=== PATIENT | male | born 1975 | race Caucasian/White ===

== ENCOUNTER 2017-02-01 10:42 | Inpatient (IN) | payer SELFPAY ==
[2017-02-01] MEDS ORDERED: ADENOSINE 6 MG/2 ML VIAL ONE (10:54)
--- NOTE | 2017-02-01 10:59 | CPEKG ---
Heart Rate: 215 RR Interval: 279 QRSD Interval: 108 QT Interval: 244 QTC Interval: 462 P [place]: 0 QRS [place]min[place]: -48 T Wave [place]: 108 EKG Severity - ABNORMAL ECG - EKG Impression: SUPRAVENTRICULAR TACHYCARDIA EKG Impression: VENTRICULAR PREMATURE COMPLEX EKG Impression: ABERRANT COMPLEX EKG Impression: INCOMPLETE RIGHT BUNDLE BRANCH BLOCK EKG Impression: INFERIOR INFARCT, POSSIBLY ACUTE EKG Impression: LATERAL LEADS ARE ALSO INVOLVED Electronically Signed By: Missael Garcia 01-Feb-2017 14:35:01
[2017-02-01] MEDS ORDERED: NS 100 ML BAG IV ONE (11:01)
[2017-02-01] MEDS ORDERED: AMIODARONE HCL 150 MG/3 ML VIAL ONE (11:01)
--- NOTE | 2017-02-01 11:03 | EDPHY ---
H & P Stated Complaint: fast hr/nausea Time Seen by Provider: 02/01/17 11:02 - Personal History Current Tetanus/Diphtheria Vaccine: Yes - Medical/Surgical History Hx Asthma: No Hx Chronic Respiratory Disease: No Hx Diabetes: No Hx Cardiac Disease: No Hx Renal Disease: No Hx Cirrhosis: No Hx Alcoholism: No Hx HIV/AIDS: No Hx Splenectomy or Spleen Trauma: No Other PMH: r knee surg - Social History Smoking Status: Never smoked Constitutional: Initial Vital Signs Temperature (C) 36.4 C 02/01/17 10:47 Heart Rate 220 H 02/01/17 10:47 Respiratory Rate 22 H 02/01/17 10:47 Blood Pressure 108/83 H 02/01/17 10:47 O2 Sat (%) 98 02/01/17 10:47 O2 Delivery Mode [Post Non-Rebreather Mask Procedure 1st] O2 Delivery Mode [Procedural Non-Rebreather Mask 3rd] O2 Delivery Mode [Procedural Non-Rebreather Mask 2nd] O2 Delivery Mode [Procedural Non-Rebreather Mask 1st] O2 Delivery Mode [.Immediate Non-Rebreather Mask Pre-Procedure] O2 Delivery Mode Non-Rebreather Mask O2 (L/minute) [Post Procedure 15 1st] O2 (L/minute) [Procedural 3rd] 15 O2 (L/minute) [Procedural 2nd] 15 O2 (L/minute) [Procedural 1st] 15 O2 (L/minute) [.Immediate Pre- 15 Procedure] O2 (L/minute) 15 Allergies/Adverse Reactions: No Known Allergies Allergy (Unverified 02/01/17 10:45) Home Medications: Medication Instructions Recorded Aspirin 325 mg (*) 02/01/17 Medical Decision Making ED Course/Re-evaluation: CHIEF COMPLAINT: Rapid heart rate HISTORY OF PRESENT ILLNESS: The patient is a 41 y/o male arriving via private vehicle at the referral of urgent care complaining of rapid heart rate onset around 21:00 last night, about 14 hours ago. He has no prior history of SVT or other cardiac disease. He denies associated chest pain or shortness of breath, but this morning developed weakness, nausea, and fatigue. He has never experienced these symptoms before. He ate part of a banana and some almonds this morning, but later vomited it up. He denies any illicit drugs. His father had an NC at age 58. REVIEW OF SYSTEMS: A 10 point review of systems was performed and is negative with the exception of the elements mentioned in the history of present illness. PHYSICAL EXAM: HR 220, BP unobtainable, O2 Sat, RR. Temp noted General Appearance: Alert, well hydrated, appropriate, and non-toxic appearing. Head: Atraumatic without scalp tenderness or obvious injury Eyes: Pupils equal, round, reactive to light and accommodation, EOMI, no trauma , no injection. Throat: There is no erythema or exudates, no lesions, normal tonsils, mucus membranes moist. Neck: Supple, nontender, no lymphadenopathy. Respiratory: No retractions, no distress, no wheezes, and no accessory muscle use. Lungs are clear to auscultation bilaterally. Cardiovascular: Tachycardic rate and rhythm, no murmurs, rubs, or gallops. Good capillary refill all extremities. Gastrointestinal: Abdomen is soft, nontender, non-distended, no masses, no rebound, no guarding, no peritoneal signs. Musculoskeletal: Normal active ROM of all extremities, atraumatic. Neurological: Alert, appropriate, and interactive. Nonfocal neuro exam. Skin: No rashes, good turgor, no nodules on palpation. Past medical history: Denies Past surgical history: Denies Family history: Father had NC at age 58. 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 Narrow complex tachycardiac rate 215 with rate-related ischemia. See hard copy and/or "tracemaster" electronic copy for interpretation. 1119: Procedure: Conscious sedation. Indication: Cardioversion The patient is an appropriate candidate to tolerate procedural sedation. The patient's vitals signs and mental status are appropriate. NPO status (vomited small breakfast several hours ago). The risks, benefits and alternatives of the sedation were discussed with the patient. The patient is ASA classification 1. The patient's Mallampati airway score was 1 and the patient did meet the 3-3 -2 airway measurements. A time out was completed. The patient was sedated with 100mg IV Propofol. The patient was monitored with continuous pulse oximetry , telemetry monitor and end tidal CO2. Patient required jaw thrust and BVM; SpO2 remained at 100%. I performed both the sedation and the procedure. The total time I spent at the bedside during the procedural sedation was 15 minutes. The patient was examined after the procedural sedation and has returned to their pre -sedation baseline with unchanged vital signs and a normal examination. Procedure: Electrical Cardioversion x3 Indication: Narrow complex tachycardia not responsive to medication Risks, benefits, alternatives discussed with the patient and consent obtained. The patient was on a continuous child monitor, with airway equipment at the bedside. The patient was on continuous pulse oximetry and passive CO2 monitor. The cardioversion was performed with 150 joules, synchronized. The cardioversion was unsuccessful. We shocked again at 300 joules without improvement. A third shock was administered at 360 joules with no improvement in rhythm. Patient required jaw thrust and BVM; SpO2 remained at 100%. The procedure was performed by myself. 1144: Procedure: Conscious sedation. Indication: Cardioversion The patient is an appropriate candidate to tolerate procedural sedation. The patient's vitals signs and mental status are appropriate. NPO status (vomited small breakfast several hours ago). The risks, benefits and alternatives of the sedation were discussed with the patient. The patient is ASA classification 1. The patient's Mallampati airway score was 1 and the patient did meet the 3-3 -2 airway measurements. A time out was completed. The patient was sedated with 100mg IV Propofol. The patient was monitored with continuous pulse oximetry , telemetry monitor and end tidal CO2. Patient required jaw thrust and BVM; SpO2 remained at 100%. I performed both the sedation and the procedure. The total time I spent at the bedside during the procedural sedation was 15 minutes. The patient was examined after the procedural sedation and has returned to their pre -sedation baseline with unchanged vital signs and a normal examination. 1147: The 12 lead EKG was interpreted by myself. Sinus rhythm rate 87 with inferior ischemia. See hard copy and/or "tracemaster" electronic copy for interpretation. Critical care time spent by me, Dr. Garcia, exclusively with this patient was 60 minutes, exclusive of PA time and exclusive of procedures. The organ system at risk was cardiovascular and I gave IVF, Amiodarone, Adenosine, Procainamide, procedural sedation twice, cardioversion three times, and emergently transferred the patient to the confectionery laboratory manager to prevent worsening of the patients condition. DIFFERENTIAL DIAGNOSIS: The differential diagnosis for the patient's narrow complex tachycardia included but was not limited to various causes of sinus tachycardia such as dehydration and medicines, SVT, atrial flutter, atrial fibrillation, pulmonary causes. MEDICAL DECISION MAKING: This is a normally healthy 41 y/o male presenting with a 14-hour history of rapid heart rate with weakness and nausea onset this morning. He has no known cardiac history. He is alert, oriented, and walking upon his arrival in the ED. He denies chest pain. No signs of respiratory distress. EKG shows narrow complex tachycardia rate around 220. We have been unable to auscultate a BP, though patient remains conscious and talking. IV established. Labs drawn including CBC, CHEM, TSH, BNP, d-dimer, troponin. 200mL IV NS administered. 1109: 12mg IV Adenosine administered without any reduction in patient's heart rate. 1110: Consulted with Dr. Gustafson, hospitalist, at bedside. He thinks the EKG shows ventricular tachycardia. Job Checker paged. 1115: 150mg IV Amiodarone administered. 1119: Conscious sedation initiated for cardioversion. 1122: One shock at 150 joules and second shock at 300 joules did not improve rhythm. 1123: Dr. Daniels, sugar presser, at bedside. 1125: Third shock at 360 joules performed without conversion. Dr. 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 Stat echocardiogram ordered. 1139: Dr. Rhodes, electrocardiologist, at bedside. 1140: Dr. Daniels reports the echo shows his inferior wall has poor motion, which could indicate NC. He is plans to take patient to the confectionery laboratory manager. 1141: 1gm IV procainamide administered. Drip over 20 minutes. 1143: Dr. Rhodes has requested repeat sedation to reattempt cardioversion. Rate is 185. He reads the initial EKG as ventricular tachycardia secondary to recent right coronary infarct in conjunction with inferior injury on echocardiogram. 1147: HR is 88 after procainamide administration. Repeat 12-lead shows sinus rhythm rate 87 with inferior ischemia. BP is 96/62. IV fluid administered in consultation with cardiology. He is heading to confectionery laboratory manager emergently with Dr. Daniels. Troponin is elevated at 1.340, D-dimer elevated at 1.43, BNP elevated at 5310. - Data Points Laboratory Results: Laboratory Results 02/01/17 11:03 02/01/17 11:03 05/09/0802/01/17 02/01/17 11:03 11:03 11:03 WBC RBC Hgb Hct MCV MCH MCHC RDW Plt Count D-Dimer 1.43 ug/mLFEU H ug/mLFEU (0.00-0.50) Sodium 140 mEq/L mEq/L (134-144) Potassium 4.8 mEq/L mEq/L (3.5-5.2) Chloride 107 mEq/L mEq/L (97-110) Carbon Dioxide 19 mEq/l L mEq/l (22-31) Anion Gap 14 mEq/L mEq/L (8-16) BUN 27 mg/dL H mg/dL (7-23) Creatinine 1.0 mg/dL mg/dL (0.7-1.3) Estimated GFR > 60 Glucose 155 mg/dL H mg/dL (70-100) Calcium 9.8 mg/dL mg/dL (8.5-10.4) Total Bilirubin 0.8 mg/dL mg/dL (0.1-1.4) AST 372 IU/L H IU/L (17-59) ALT 397 IU/L H IU/L (21-72) Alkaline Phosphatase 117 IU/L IU/L (38-126) Troponin I Cancelled 1.340 ng/mL H ng/mL (0-0.034) NT-Pro-B Natriuret Pep Cancelled 5310 pg/mL H pg/mL (0-125) Total Protein 7.3 g/dL g/dL (6.3-8.2) Albumin 4.2 g/dL g/dL (3.5-5.0) TSH 1.550 uIU/mL uIU/mL Cancelled (0.465-4.680) 02/01/17 11:03 WBC 9.29 10^3/uL 10^3/uL (3.80-9.50) RBC 4.78 10^6/uL 10^6/uL (4.40-6.38) Hgb 14.9 g/dL g/dL (13.7-17.5) Hct 42.8 % % (40.0-51.0) MCV 89.5 fL fL (81.5-99.8) MCH 31.2 pg pg (27.9-34.1) MCHC 34.8 g/dL g/dL (32.4-36.7) RDW 12.8 % % (11.5-15.2) Plt Count 302 10^3/uL 10^3/uL (150-400) D-Dimer Sodium Potassium Chloride Carbon Dioxide Anion Gap BUN Creatinine Estimated GFR Glucose Calcium Total Bilirubin AST ALT Alkaline Phosphatase Troponin I NT-Pro-B Natriuret Pep Total Protein Albumin TSH Medications Given: Discontinued Medications Adenosine (Adenosine) 12 mg IVP EDNOW ONE Stop: 02/01/17 11:07 Last Admin: 02/01/17 11:10 Dose: 12 mg Amiodarone HCl (Amiodarone Hcl) 150 mg IV EDNOW ONE Stop: 02/01/17 11:18 Last Admin: 02/01/17 11:17 Dose: 150 mg Sodium Chloride (Ns) 1,000 mls @ 0 mls/hr IV ONCE ONE PRN Reason: Wide Open Stop: 02/01/17 11:07 Last Admin: 02/01/17 11:10 Dose: 1,000 mls Procainamide HCl 1,000 mg/ (Dextrose) 60 mls @ 120 mls/hr IV ONCE ONE Stop: 02/01/17 11:55 Last Admin: 02/01/17 11:41 Dose: 60 mls Procainamide HCl 1,000 mg/ (Dextrose) 60 mls @ 120 mls/hr IV ONCE ONE Stop: 02/01/17 11:56 Last Admin: 02/01/17 11:42 Dose: Not Given Propofol (Diprivan) 100 mg IVP EDNOW ONE Stop: 02/01/17 11:46 Last Admin: 02/01/17 11:45 Dose: 100 mg Propofol (Diprivan) 100 mg IVP EDNOW ONE Stop: 02/01/17 11:20 Last Admin: 02/01/17 11:19 Dose: 100 mg Departure - Departure Disposition: [facility] Clinical Impression: Ventricular tachycardia, Inferior myocardial infarction, Elevated d-dimer, Elevated troponin Acute congestive heart failure Qualifiers: Congestive heart failure type: unspecified congestive heart failure type Qualified Code(s): I50.9 - Heart failure, unspecified Condition: Critical Report Scribed for: Missael Garcia Report Scribed by: Janine Duarte Date of Report: 02/01/17 Time of Report: 11:03
[2017-02-01] MEDS ORDERED: ADENOSINE 6 MG/2 ML VIAL IVP ONE (11:06)
[2017-02-01] MEDS ORDERED: NS 1,000 ML IV ONE ×2 (11:06→11:45)
[2017-02-01] MEDS ORDERED: PROPOFOL 200 MG/20 ML VIAL ONE (11:15)
[2017-02-01 11:17] LABS: HEMATOCRIT 42.8 % (40.0-51.0); HEMOGLOBIN 14.9 g/dL (13.7-17.5); MEAN CELL HEMOGLOBIN 31.2 pg (27.9-34.1); MEAN CELL HEMOGLOBIN CONCENTR. 34.8 g/dL (32.4-36.7); MEAN CELL VOLUME 89.5 fL (81.5-99.8); RED BLOOD CELL COUNT 4.78 10^6/uL (4.40-6.38); RED CELL DISTRIBUTION WIDTH 12.8 % (11.5-15.2)
[2017-02-01] MEDS ORDERED: AMIODARONE HCL 150 MG/3 ML VIAL IV ONE (11:17)
[2017-02-01] MEDS ORDERED: PROPRANOLOL HCL 1 MG/ML VIAL IV ONE (11:19)
[2017-02-01] MEDS ORDERED: PROPOFOL 200 MG/20 ML VIAL IVP ONE ×2 (11:19→11:45)
[2017-02-01] MEDS ORDERED: PROCAINAMIDE HCL 1,000 MG in D5W 50 ML IV ONE ×2 (11:26→11:27)
[2017-02-01 11:31] LABS: ALANINE AMINOTRANSFERASE 397 IU/L (21-72); ALBUMIN 4.2 g/dL (3.5-5.0); ALKALINE PHOSPHATASE 117 IU/L (38-126); ANION GAP 14 mEq/L (8-16); ASPARTATE AMINOTRANSFERASE 372 IU/L (17-59); BILIRUBIN,TOTAL 0.8 mg/dL (0.1-1.4); CALCIUM 9.8 mg/dL (8.5-10.4); CARBON DIOXIDE 19 mEq/l (22-31); CHLORIDE 107 mEq/L (97-110); GLOMERULAR FILTRATION RATE > 60; GLUCOSE 155 mg/dL (70-100); POTASSIUM 4.8 mEq/L (3.5-5.2); SODIUM 140 mEq/L (134-144); TOTAL PROTEIN 7.3 g/dL (6.3-8.2)
[2017-02-01] MEDS: PROPRANOLOL HCL 1 MG/ML VIAL IV ONE ×2 (11:45→20:27)
[2017-02-01] MEDS ORDERED: KETAMINE 100 MG/10 ML SYR IVP ONE (11:47)
[2017-02-01] MEDS ORDERED: IOPAMIDOL (ISOVUE-370) 150 ML BTL IV ONE ×2 (11:57→12:19)
[2017-02-01] MEDS ORDERED: MIDAZOLAM 2 MG/2 ML VIAL ONE ×2 (11:57)
[2017-02-01] MEDS ORDERED: LIDOCAINE 1% 30 ML SDV ONE (11:57)
[2017-02-01] MEDS ORDERED: fentaNYL 100 MCG/2 ML INJ ONE ×2 (11:57→13:07)
--- NOTE | 2017-02-01 11:59 | CPEKG ---
Heart Rate: 87 RR Interval: 690 P-R Interval: 172 QRSD Interval: 68 QT Interval: 360 QTC Interval: 433 P [place]: 19 QRS [place]: 119 T Wave [place]: -34 EKG Severity - ABNORMAL ECG - EKG Impression: SINUS RHYTHM EKG Impression: RIGHT AXIS DEVIATION EKG Impression: LOW VOLTAGE IN FRONTAL LEADS EKG Impression: ABNORMAL T, CONSIDER ISCHEMIA, INFERIOR LEADS Electronically Signed By: Missael Garcia 01-Feb-2017 14:35:01
[2017-02-01] MEDS ORDERED: BIVALIRUDIN 250 MG/5 ML VIAL IV ONE (12:18)
[2017-02-01] MEDS ORDERED: NITROGLYCERIN 1,500 MCG/15 ML VIAL MISC ONE (12:18)
--- NOTE | 2017-02-01 12:54 | PDDXCAT ---
Diagnostic Cath Note - . Date: 02/01/17 Intervention: 1. PTCA and drug-eluting stent implantation in the left circumflex 2. Placement of Intraaortic balloon pump (IABP) *Procedure 1. selective coronary angiography 2. left heart catheterization 3. left ventriculogram 4. PTCA and drug-eluting stent implantation in the mid left circumflex 5. placement of intra-aortic balloon pump Indication: Acute coronary syndrome, monomorphic ventricular tachycardia. The patient was brought to the cath lab radiological technologist urgently and was sedated and unable to sign consents before the start of the procedure. Access: Right femoral artery *Materials Left Heart Cath size: 6F Left Heart Cath materials: JR4, JL3.5, AL1, Arron Right, pigtail, 2.5 x 15 mm Emerge Balloon, 2.5 x 20 mm Synergy drug eluting stent *Findings-Selective Coronary Angiography LM: The left main is ~5 mm in size and bifurcates into an LAD and circumflex system. There is no significant LM disease. LAD: The proximal LAD is ~3 mm in size and has maximal luminal stenosis of 20% at the level of the first diagonal takeoff. The distal 1/3 of the vessel is diffusely diseased. There is no flow limiting obstruction with TERESA III flow. LCX: There is a 100% mid left circumflex lesion with TERESA 0 flow. There is a 100% occlusion of the circumflex obtuse marginal with TERESA 0 flow. RCA: The right coronary artery was successfully cannulated with a Arron Right. 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 The vessel is dominant and ~3.5 mm in size. There is a 40-50% plaque area stenosis in the mid RCA with TERESA II flow to the distal vessel. *Findings-Left Heart Catheterization LVEDP: 32 mmHg AO: 96/65/73 mmHg LVEF: 20% LVG: There is severe global wall hypokinesis with reduced ejection fraction. 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 There is 3+ to 4+ MR on pressurized injection. *Intervention A CLS 3.5 Con[place] was used for guide catheter support. A 0.014" Intuition Guide Wire was inserted in the mid left circumflex lesion under direct fluoroscopic and angiographic guidance. Angiomax bolus was given and activated clotting time was documented to be >250 seconds. A 2.5 x 15 mm Emerge Balloon used to predilate the 100% mid left circumflex lesion with TERESA 0 flow and inflated under a maximum of 10 allen of pressure. Status post stent implantation, the balloon was exchanged for a 2.5 x 20 mm Synergy drug eluting stent which was successfully deployed under 14 allen of pressure. The 2.5 x 20 mm Synergy stent was removed and exchanged for a 2 x 20 mm NC Emerge balloon. The balloon was used to post-dilate the stent with multiple inflations under a maximum of 16 allen of pressure. There was 0% residual stenosis with TERESA I flow status post intervention. We proceeded with intraaortic balloon pump placement with 1:1 augmentation. *Summary Complications: None Estimated blood loss: <100ml Closure method: Manual pressure Assessment/Conclusion: 1. Subacute subendocardial myocardial infarction with 100% occlusion of the mid left circumflex with TERESA 0 flow. This was reperfused with a 2.5 x 20 mm Synergy drug eluting stent and multiple balloon inflations. Status post stent implantation there was 0% residual stenosis and TERESA II flow to the distal vessel. Intraaortic balloon pump with 1:1 assistance and augmentation at 120 was placed following stent implantation. The patient returned to the ICU in stable condition. 2. There is severe and global wall hypokinesis with severely reduced ejection fraction at 20%. This may be secondary to tachycardia induced cardiomyopathy versus some preexisting cardiomyopathy with super imposed acute coronary syndrome. 3. Ventricular tachycardia vs. atrial tachycardia with accessory pathway. The patient should have AICD implant before discharge given that the patient presented with sustained monomorphic VT which implies a ventricular scar. We will continue to monitor. 4. Severe 4+ mitral regurgitation on pressurized injection of contrast. This may be secondary to papillary muscle dysfunction. We will follow up with echo in 48 hours to track ejection fraction and severity of MR. Patient Problems: Problems Problem Status Onset Inferior myocardial infarction Acute Ventricular tachycardia Acute
[2017-02-01] MEDS ORDERED: ONDANSETRON 4 MG/2 ML VIAL ONE (13:16)
[2017-02-01] MEDS ORDERED: ASPIRIN 325 MG TAB ONE (13:22)
[2017-02-01] MEDS ORDERED: PRASUGREL HCL 10 MG TAB ONE (13:22)
[2017-02-01] MEDS ORDERED: FUROSEMIDE 40 MG/4 ML VIAL ONE (13:46)
--- NOTE | 2017-02-01 13:50 | ECHO ---
[id number] + + [address] : : [place] [address] : : [phone] + Adult Echocardiographic Report + ---+ :Name: СВЕТЛАНА MICHAUD MStudy Date: 02/01/2017 12:01 PM : : Hospital Admission Number: [id number] Location: ER: :: 1975 Gender: Male : :Age: 41 yrs Race: WH : :Reason For Study: Tachycardia : + ---+ Left Ventricle The rhythm is extreme tachycardia Depressed LVEF at 20% LV inferolateral/inferior mcnally are severely hypokinetic One color Doppler view of the MR shows at least moderate regurgitation. Conclusion Limited 2-D echo. Final Reading Physician: Dr Nicolasa Cochran electronically signed on 02/01/2017 01:48 PM Ordering Physician: Sergo Daniels Performed By: Isabelle Cui RDCS
[2017-02-01] MEDS ORDERED: NITROGLYCERIN 0.4 MG BTL SL PRN (14:37)
[2017-02-01] MEDS ORDERED: ONDANSETRON DISINTEGRATING 4 MG TAB PO PRN (14:37)
[2017-02-01] MEDS ORDERED: ONDANSETRON 4 MG/2 ML VIAL IVP PRN (14:37)
[2017-02-01] MEDS ORDERED: ACETAMINOPHEN 325 MG TAB PO PRN (14:37)
[2017-02-01] MEDS ORDERED: ATROPINE SULFATE 1 MG/10 ML SYR IVP PRN (14:37)
--- NOTE | 2017-02-01 14:49 | GCON ---
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 REASON FOR ADMISSION: Tachycardia, coronary artery disease, intra-aortic balloon pump. HISTORY OF PRESENT ILLNESS: The patient is a 41-year-old white male without past medical history. He presented to the emergency room markedly tachycardic. He underwent cardioversion x3 without impr ovement. He was taken to the cardiac catheterization lab for acute coronary syndrome. PTCA and a d rug-eluting stent were placed in the left circumflex, and [facility]. He was found to have a severely reduced ejection fraction at 20%. The patient is currently awake and alert. He states he is not currently having any pain. There is no shortness o f breath, cough or production of sputum. No nausea, no vomiting. No diarrhea. He is thirsty. PAST MEDICAL HISTORY: None. ALLERGIES: No known allergies to medications. SOCIAL HISTORY: No history of tobacco use. Daily alcohol use. He is single, without children. He has lived in [place] for 20 years. He is originally from [facility]. MEDICATION: At home: None. 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 PHYSICAL EXAM: VITAL SIGNS: Blood pressure is 96/62, pulse 81, respirations 18, he is afebrile. O xygen saturation is 100%, on non-rebreather. GENERAL: He is a well-developed, well-nourished, 41-y ear-old, white male. He is resting comfortably, in no acute distress. HEENT: Eyes PERRLA, EOMI. Throat: There is no erythema or tonsillar hypertrophy. NECK: Supple. There is no cervical adenopa thy. HEART: Regular rate and rhythm. There are intra-aortic balloon pump sounds. LUNGS: Clear t o auscultation. No wheeze or rhonchi. ABDOMEN: Soft, nontender. Bowel sounds are present in all 4 quadrants. EXTREMITIES: No clubbing, cyanosis, or edema. LABORATORIES: White count 9.2, hemoglobin 14, hematocrit 42, platelet count 302. D-dimer is 1.43. Sodium 140, potassium 4.8, chloride 107, CO2 is 19, BUN 27, creatinine 1, glucose is 155. AST is e levated at 372. ALT is elevated at 397. Troponins are positive. BNP is 5310. TSH is 1.155. IMPRESSION: 1. Acute coronary syndrome. 2. Status post PTCA and stenting of the left circumflex. 3. Intra-aortic balloon pump. 4. Cardiomyopathy with ejection fraction of 20%. RECOMMENDATIONS: 1. DVT and PE prophylaxis. 2. Stress ulcer prophylaxis. 3. Supplemental oxygen. 4. Bed rest for now. /[id number]/MODL
[2017-02-01] MEDS ORDERED: PRASUGREL HCL 10 MG TAB PO ONE (14:56)
--- NOTE | 2017-02-01 15:10 | CPEKG ---
Heart Rate: 214 RR Interval: 280 P-R Interval: 108 QRSD Interval: 116 QT Interval: 256 QTC Interval: 484 P [place]: 0 QRS [place]: -56 T Wave [place]: 112 EKG Severity - ABNORMAL ECG - EKG Impression: SUPRAVENTRICULAR TACHYCARDIA EKG Impression: NONSPECIFIC IVCD WITH LAD EKG Impression: INFERIOR INFARCT, POSSIBLY ACUTE Electronically Signed By: Sergo Daniels 01-Feb-2017 16:26:46
--- NOTE | 2017-02-01 15:19 | CPEKG ---
Heart Rate: 214 RR Interval: 280 P-R Interval: 112 QRSD Interval: 108 QT Interval: 256 QTC Interval: 484 P [place]: 0 QRS [place]: -51 T Wave [place]: 112 EKG Severity - ABNORMAL ECG - EKG Impression: VENTRICULAR TACHYCARDIA EKG Impression: VENTRICULAR PREMATURE COMPLEX EKG Impression: ABERRANT COMPLEX EKG Impression: BORDERLINE IVCD WITH LAD EKG Impression: INFERIOR INFARCT, ACUTE Electronically Signed By: Sergo Daniels 01-Feb-2017 16:28:28
[2017-02-01] MEDS ORDERED: METOPROLOL TARTRATE 5 MG/5 ML INJ IVP ONE (20:00)
[2017-02-01] MEDS: LORazepam 2 MG/ML INJ IVP PRN (20:41)
[2017-02-02 04:20] LABS: % IMMATURE GRANULYOCYTES 0.4 % (0.0-1.1); ABSOLUTE IMMATURE GRANULOCYTES 0.04 10^3/uL (0.00-0.10); ADD DIFF? NO; ADD MORPH? NO; ADD SCAN? NO; ATYPICAL LYMPHOCYTE FLAG 0 (0-99); FRAGMENT RBC FLAG 0 (0-99); HEMATOCRIT 34.4 % (40.0-51.0); HEMOGLOBIN 11.6 g/dL (13.7-17.5); LEFT SHIFT FLG 0 (0-99); LIPEMIA HEMOLYSIS FLAG 80 (0-99); MEAN CELL HEMOGLOBIN CONCENTR. 33.7 g/dL (32.4-36.7); MEAN PLATELET VOLUME 10.2 fL (8.7-11.7); PLATELET CLUMPS FLAG 0 (0-99); PLATELET COUNT 208 10^3/uL (150-400); RED BLOOD CELL COUNT 3.74 10^6/uL (4.40-6.38); RED CELL DISTRIBUTION WIDTH 13.1 % (11.5-15.2)
[2017-02-02 04:30] LABS: ALBUMIN 3.3 g/dL (3.5-5.0); ANION GAP 7 mEq/L (8-16); ASPARTATE AMINOTRANSFERASE 258 IU/L (17-59); BILIRUBIN,TOTAL 0.7 mg/dL (0.1-1.4); CALCIUM 8.2 mg/dL (8.5-10.4); CARBON DIOXIDE 24 mEq/l (22-31); CHLORIDE 109 mEq/L (97-110); GLOMERULAR FILTRATION RATE > 60; GLUCOSE 87 mg/dL (70-100); LACTATE DEHYDROGENASE 1308 IU/L (313-618); MAGNESIUM 2.3 mg/dL (1.6-2.3); POTASSIUM 4.2 mEq/L (3.5-5.2); SODIUM 140 mEq/L (134-144)
[2017-02-02] MEDS: LORazepam 2 MG/ML INJ IVP PRN ×2 (05:18→21:41)
--- NOTE | 2017-02-02 08:50 | PDCARPN ---
Cardiology Progress Note Chief Complaint: Rapid heart rate Assessment/Plan: Assessment: Patient is a 41 y/o male with previously unremarkable past medical history (no CAD, HTN, HLP, or DM, per reports), who presented to ER via private transport yesterday. Initial rhythm was a rapid, narrow complex tachycardia. Attempts at cardioversion were unsuccessful. Evolution to a wide complex tachycardia were noted as well as changes consistent with ischaemia (coupled with echo wall motion abnormalities). Patient was taken to the cardiac crown and bridge dental lab technician and PCI to critical LCX lesion was performed. Severe mitral regurgitation was noted with ventriculogram as well as severe reduction in left ventricular systolic function (20%). An IABP was placed, and the patient was transferred to the ICU overnight. Sinus rhythm was noted upon arrival to the ICU, and remains at this point today. Patient reports that he has been feeling well today - much better than yesterday. No chest pains or pressure. No PND or orthopnea. No complaints of lower extremity edema has been noted. Prior to this hospitalization, the patient took no medications. Plan: (1) Plans were for the patient to maintain IABP for 24-36 hours (2) Would continue therapy on ASA and Effient with recent PCI for minimum of one year (3) Would being therapy on Coreg (3.125 mg once per day, starting today) and ensure that the patient's pressures tolerate this dose (4) Likely addition of ACEi (lisinopril at 2.5 mg per day) (5) Statin therapy should also be implemented, but we should obtain a baseline cholesterol and LFT (6) Patient may need to have ICD placed prior to discharge given the ventricular ectopy that was noted in the ER (7) Haemaglobin drop was noted (query dehydration), and reassessment of H/H is pending this morning We will continue to follow this patient Subjective: No cardiovascular complaints voiced this morning. Reviewed/Discussed With: multidisciplinary team Time Spent With Patient: 20 minutes Objective: Vital Signs (8 Hrs) Temp Pulse Resp BP Pulse Ox 02/02/17 08:00 84 26 H 106/83 H 98 02/02/17 07:00 86 18 111/77 96 02/02/17 06:00 85 16 91/75 L 96 02/02/17 05:45 19 86 L 02/02/17 05:00 87 21 H 105/75 97 02/02/17 04:00 36.8 C 84 105/72 24 L 02/02/17 03:00 82 26 H 102/49 L 93 02/02/17 02:00 84 18 104/58 L 92 02/02/17 01:00 82 22 H 101/49 L 96 Intake/Output (24 Hrs) 02/01/17 02/02/17 02/03/17 05:59 05:59 05:59 Intake Total 2550 Output Total 1450 Balance 1100 Intake: Oral (ml) 550 IV Infused (ml) 2000 Output: Urine (ml) 1450 Catheter 1450 Other: Weight 90.718 kg Result Diagrams: 02/02/17 04:00 02/02/17 04:00 Cardiac Labs: Cardiac Lab Results (72 Hrs) 02/02/17 02/01/17 04:00 18:21 Troponin I 2.610 H 1.810 H EKG: normal sinus rhythm Telemetry: normal sinus rhythm Echocardiogram: EF estimated to be 20% with at least "moderate" mitral regurgitation - Physical Exam Constitutional: WDWN, healthy appearing, no apparent distress Eyes: PERRL Ears, Nose, Mouth, Throat: moist mucous membranes Cardiovascular: regular rate and rhythm, no rubs, no gallops, systolic murmur Peripheral Pulses: 2+: dorsalis-pedis (R), dorsalis-pedis (L) Respiratory: clear to auscultate bilat, no crackles, no wheezes Gastrointestinal: normoactive bowel sounds Skin: no rashes, no edema Musculoskeletal: no muscular tenderness Neurologic: AAOx3, CN II-XII grossly intact Psychiatric: cooperative, interactive, following commands ICD10 Worksheet Patient Problems: Problems Problem Status Onset Inferior myocardial infarction Acute Ventricular tachycardia Acute
[2017-02-02] MEDS: PRASUGREL HCL 10 MG TAB PO SCH (09:11)
[2017-02-02] MEDS: ASPIRIN EC 325 MG TAB PO SCH (09:11)
[2017-02-02 09:35] LABS: CHOLESTEROL 140 mg/dL (140-200); CHOLESTEROL/HDL RATIO 5.19 RATIO (1.00-4.97); HIGH DENSITY LIPOPROTEIN 27 mg/dL (40-65); LOW DENSITY LIPOPROTEIN 81 mg/dL (70-100); NON-HIGH DENSITY LIPOPROTEIN 113 mg/dL (90-129); TRIGLYCERIDE 160 mg/dL (40-150); VERY LOW DENSITY LIPOPROTEINS 32 mg/dL (8-25)
--- NOTE | 2017-02-02 10:50 | PDINTPN ---
[facility] Progress Note Assessment/Plan: Assessment: * SVT-resolved * Coronary disease * Status coronary artery stent * Umpglohtuqgeyw-Ccyor-xkirte balloon pump in place at 1:1 * Respiratory-stable * Pain-controlled Plan: [facility] 02/02/17 10:47 Subjective: Resting comfortably. Complains of mild back pain. Denies any shortness of breath, cough, production of sputum. There is no current chest pain. Objective: Vital Signs Temp Pulse Resp BP Pulse Ox 36.8 C 93 20 115/78 98 02/02/17 04:00 02/02/17 10:00 02/02/17 10:00 02/02/17 10:00 02/02/17 10:00 Laboratory Results 02/02/17 04:00 02/02/17 04:00 02/01/17 02/02/17 02/03/17 05:59 05:59 05:59 Intake Total 2550 Output Total 1450 Balance 1100 Laboratory Results 02/02/17 04:00 02/02/17 04:00 02/02/17 02/02/17 02/01/17 04:00 04:00 18:21 Calcium 8.2 mg/dL L D mg/dL (8.5 - 10.4) Phosphorus 3.1 mg/dL mg/dL (2.5 - 4.5) Magnesium 2.3 mg/dL mg/dL (1.6 - 2.3) Total Bilirubin 0.7 mg/dL mg/dL (0.1 - 1.4) AST 258 IU/L H IU/L (17 - 59) Lactate Dehydrogenase 1308 IU/L H IU/L (313 - 618) Troponin I 2.610 ng/mL H ng/mL 1.810 ng/mL H ng/mL (0 - 0.034) (0 - 0.034) NT-Pro-B Natriuret Pep 2720 pg/mL H pg/mL (0 - 125) Albumin 3.3 g/dL L g/dL (3.5 - 5.0) Triglycerides 160 mg/dL H mg/dL (40 - 150) Cholesterol 140 mg/dL mg/dL (140 - 200) Cholesterol Risk Factr 1.2 H (0.2 - 1.0) LDL Cholesterol, Calc 81 mg/dL mg/dL (70 - 100) LDL Risk Factor 1.0 (0.2 - 1.0) VLDL Cholesterol 32 mg/dL H mg/dL (8 - 25) Non-HDL Cholesterol 113 mg/dL mg/dL (90 - 129) HDL Cholesterol 27 mg/dL L mg/dL (40 - 65) LDL/HDL Ratio 3.00 RATIO RATIO (1.00 - 3.64) Cholesterol/HDL Ratio 5.19 RATIO H RATIO (1.00 - 4.97) TSH 02/01/17 15:23 Calcium Phosphorus Magnesium Total Bilirubin AST Lactate Dehydrogenase Troponin I NT-Pro-B Natriuret Pep Albumin Triglycerides Cholesterol Cholesterol Risk Factr LDL Cholesterol, Calc LDL Risk Factor VLDL Cholesterol Non-HDL Cholesterol HDL Cholesterol LDL/HDL Ratio Cholesterol/HDL Ratio TSH 1.720 uIU/mL uIU/mL (0.465 - 4.680) Physical Exam - Physical Exam General Appearance: alert, no apparent distress EENT: PERRL/EOMI, normal ENT inspection, pharynx normal, TMs normal Neck: non-tender, full range of motion, supple, normal inspection Respiratory: chest non-tender, lungs clear, normal breath sounds Cardiac/Chest: normal peripheral pulses, regular rate, rhythm, other (IABP sounds) Abdomen: normal bowel sounds, non-tender, soft Male Genitalia: deferred Rectal: deferred Skin: normal color, warm/dry Extremities: normal range of motion, non-tender, normal inspection, normal capillary refill Neuro/Psych: no motor/sensory deficits, alert, normal mood/affect, oriented x 3 ICD10 Worksheet Patient Problems: Problems Problem Status Onset Inferior myocardial infarction Acute Ventricular tachycardia Acute
[2017-02-02] MEDS ORDERED: CARVEDILOL 3.125 MG TAB PO ONE (20:00)
[2017-02-03 04:43] LABS: HEMATOCRIT 32.8 % (40.0-51.0); HEMOGLOBIN 11.4 g/dL (13.7-17.5); MEAN CELL HEMOGLOBIN 31.4 pg (27.9-34.1); MEAN CELL HEMOGLOBIN CONCENTR. 34.8 g/dL (32.4-36.7); MEAN CELL VOLUME 90.4 fL (81.5-99.8); RED BLOOD CELL COUNT 3.63 10^6/uL (4.40-6.38); RED CELL DISTRIBUTION WIDTH 12.7 % (11.5-15.2)
--- NOTE | 2017-02-03 09:15 | PDCARPN ---
Cardiology Progress Note Chief Complaint: Patient doing well today. Assessment/Plan: Assessment: 02-03-17 No events overnight. Patient without cardiovascular complaints (no chest pains or pressure. No PND or orthopnea). was present in room with patient. Blood pressures have been stable. No arrhythmias reported. 02-02-17 Patient is a 41 y/o male with previously unremarkable past medical history (no CAD, HTN, HLP, or DM, per reports), who presented to ER via private transport yesterday. Initial rhythm was a rapid, narrow complex tachycardia. Attempts at cardioversion were unsuccessful. Evolution to a wide complex tachycardia were noted as well as changes consistent with ischaemia (coupled with echo wall motion abnormalities). Patient was taken to the cardiac wastewater analyst lab analyst and PCI to critical LCX lesion was performed. Severe mitral regurgitation was noted with ventriculogram as well as severe reduction in left ventricular systolic function (20%). An IABP was placed, and the patient was transferred to the ICU overnight. Sinus rhythm was noted upon arrival to the ICU, and remains at this point today. Patient reports that he has been feeling well today - much better than yesterday. No chest pains or pressure. No PND or orthopnea. No complaints of lower extremity edema has been noted. Prior to this hospitalization, the patient took no medications. Plan: (1) Plan on d/c to the IABP this morning (2) ASA and Effient for one year (minimum) (3) Continue with Coreg at 3.125 mg once per day (pressures were soft overnight with the single therapy) (4) Would refrain from ACEi addition at this time given hypotension on single dose of Coreg (5) Start lower dose Crestor (5 mg per day) - cholesterol was reviewed (6) We will arrange for echocardiogram in am (02-04-17) (7) Further discussion about ICD implant prior to discharge Subjective: No cardiovascular complaints Reviewed/Discussed With: family, hospitalist, multidisciplinary team Time Spent With Patient: 15 minutes Objective: Vital Signs (8 Hrs) Temp Pulse Resp BP Pulse Ox 02/03/17 07:00 79 30 H 109/82 H 96 02/03/17 06:00 79 33 H 113/78 98 02/03/17 05:00 36.3 C 81 32 H 101/67 98 02/03/17 04:00 83 31 H 99/43 L 95 02/03/17 03:00 83 31 H 98/65 L 96 02/03/17 02:00 83 29 H 94/65 L 99 Intake/Output (24 Hrs) 02/02/17 02/03/17 02/04/17 05:59 05:59 05:59 Intake Total 2550 1450 Output Total 1450 1490 Balance 1100 -40 Intake: Oral (ml) 550 1450 IV Infused (ml) 2000 Output: Urine (ml) 1450 1490 Catheter 1450 1490 Other: Weight 90.718 kg Result Diagrams: 02/03/17 04:33 02/02/17 04:00 Cardiac Labs: Cardiac Lab Results (72 Hrs) 02/03/17 02/02/17 02/01/17 04:33 04:00 18:21 Troponin I 1.810 H 2.610 H 1.810 H Telemetry: Normal sinus rhythm - Physical Exam Constitutional: healthy appearing, no apparent distress Eyes: PERRL Ears, Nose, Mouth, Throat: moist mucous membranes Cardiovascular: regular rate and rhythm, no murmurs, no rubs, no gallops Peripheral Pulses: 2+: dorsalis-pedis (R), dorsalis-pedis (L) Respiratory: clear to auscultate bilat, no crackles, no wheezes Gastrointestinal: normoactive bowel sounds Skin: no rashes, no edema Musculoskeletal: no muscular tenderness Neurologic: AAOx3, CN II-XII grossly intact Psychiatric: cooperative, interactive, following commands ICD10 Worksheet Patient Problems: Problems Problem Status Onset Inferior myocardial infarction Acute Ventricular tachycardia Acute
--- NOTE | 2017-02-03 09:45 | PDINTPN ---
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 Denies any pain or shortness of breath. Objective: Vital Signs Temp Pulse Resp BP Pulse Ox 36.3 C 79 30 H 109/82 H 96 02/03/17 05:00 02/03/17 07:00 02/03/17 07:00 02/03/17 07:00 02/03/17 07:00 Laboratory Results 02/03/17 04:33 02/02/17 04:00 02/02/17 02/03/17 02/04/17 05:59 05:59 05:59 Intake Total 2550 1450 Output Total 1450 1490 Balance 1100 -40 Physical Exam - Physical Exam General Appearance: alert, no apparent distress EENT: PERRL/EOMI, normal ENT inspection, pharynx normal, TMs normal Neck: non-tender, full range of motion, supple, normal inspection Respiratory: chest non-tender, lungs clear, normal breath sounds Cardiac/Chest: normal peripheral pulses, regular rate, rhythm, other (IABP sounds) Abdomen: normal bowel sounds, non-tender, soft Male Genitalia: deferred Rectal: deferred Skin: normal color, warm/dry Extremities: normal range of motion, non-tender, normal inspection, normal capillary refill ICD10 Worksheet Patient Problems: Problems Problem Status Onset Inferior myocardial infarction Acute Ventricular tachycardia Acute
[2017-02-03] MEDS: ASPIRIN EC 325 MG TAB PO SCH (09:51)
[2017-02-03] MEDS: PRASUGREL HCL 10 MG TAB PO SCH (09:51)
[2017-02-03] MEDS ORDERED: MIDAZOLAM 2 MG/2 ML VIAL ONE (10:29)
[2017-02-03] MEDS ORDERED: fentaNYL 100 MCG/2 ML INJ ONE (10:29)
[2017-02-03] MEDS ORDERED: LIDOCAINE 1% 2 ML INJ ONE (10:35)
[2017-02-03] MEDS ORDERED: LIDOCAINE 1% 30 ML SDV ONE (10:36)
[2017-02-03] MEDS ORDERED: fentaNYL 100 MCG/2 ML INJ IV ONE (11:00)
[2017-02-03] MEDS ORDERED: LIDOCAINE 1% 30 ML SDV IF ONE ×2 (11:00→11:45)
[2017-02-03] MEDS ORDERED: MIDAZOLAM 2 MG/2 ML VIAL IVP ONE ×2 (11:00→11:45)
[2017-02-03] MEDS ORDERED: fentaNYL 100 MCG/2 ML INJ IVP ONE (11:45)
[2017-02-03] MEDS ORDERED: CALCIUM CARBONATE 500 MG CHEWABLE TAB PO PRN (13:51)
[2017-02-03] MEDS ORDERED: CARVEDILOL 3.125 MG TAB PO ONE (18:00)
[2017-02-04] MEDS: ASPIRIN EC 325 MG TAB PO SCH (08:41)
[2017-02-04] MEDS: PRASUGREL HCL 10 MG TAB PO SCH (08:41)
--- NOTE | 2017-02-04 10:23 | PDCARCONS ---
Cardiology Consult Reason for Consult: Ventricular tachycardia. Requesting physician was Dr. Sergo Daniels called me on Saturday to review the EKGs upon patient's presentation Chief Complaint: Palpitations, dizziness, fatigue, weakness, nausea Requesting Physician: Dr. Sergo Daniels History of Present Illness: 41-year-old male, was in his usual state of health until evening when he noticed palpitations. 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 He presented to the urgent care 14 hours after his initial presentation with complaints of palpitations, fatigue, dizziness and nausea. He was noted to be in wide complex tachycardia, 3 cardioversions were ineffective, he received procainamide by Dr. Sergo Daniels which converted him to sinus rhythm. Subsequently EKG showed ST elevations in the inferior leads, he underwent coronary angiography which showed ST elevations in inferior leads, coronary angiography was performed which showed left circumflex artery occlusion and he underwent PCI to left circumflex along with balloon pump placement because left ventricular ejection fraction was 20%. [facility] His nurse was present in the room with us. He states that he is feeling much better. He denies having had palpitations before. History Information - Allergies/Home Medication List Allergies/Adverse Reactions: No Known Allergies Allergy (Unverified 02/01/17 10:45) Home Medications: Aspirin [Aspirin 325 mg (*)] 325 mg PO DAILY PRN 02/01/17 [Last Taken 02/01/17] Ibuprofen [Motrin (*)] 200 - 400 mg PO DAILY PRN 02/01/17 [Last Taken Unknown] I have personally reviewed and updated: family history, medical history, social history - Past Medical History no pertinent PMH - Social History Smoking Status: Never smoked Physical Exam Temp Pulse Resp BP Pulse Ox 36.4 C 80 18 116/75 94 02/04/17 07:30 02/04/17 07:30 02/04/17 07:30 02/04/17 07:30 02/04/17 07:30 O2 (L/minute) 2 FIO2 (%) 93 Constitutional: no apparent distress Eyes: PERRL, EOMI Ears, Nose, Mouth, Throat: moist mucous membranes, hearing normal Cardiovascular: regular rate and rhythym, no murmur, rub, or gallop Respiratory: no respiratory distress Gastrointestinal: normoactive bowel sounds Skin: warm, normal color Neurologic: AAOx3 Psychiatric: interacting appropriately, not anxious, thought process linear Lab and Imaging 02/03/17 04:33 02/02/17 04:00 WBC 10.06 10^3/uL (3.80-9.50) H 02/03/17 04:33 RBC 3.63 10^6/uL (4.40-6.38) L 02/03/17 04:33 Hgb 11.4 g/dL (13.7-17.5) L 02/03/17 04:33 Hct 32.8 % (40.0-51.0) L 02/03/17 04:33 MCV 90.4 fL (81.5-99.8) 02/03/17 04:33 MCH 31.4 pg (27.9-34.1) 02/03/17 04:33 MCHC 34.8 g/dL (32.4-36.7) 02/03/17 04:33 RDW 12.7 % (11.5-15.2) 02/03/17 04:33 Plt Count 197 10^3/uL (150-400) 02/03/17 04:33 MPV 10.2 fL (8.7-11.7) 02/02/17 04:00 Neut % (Auto) 66.9 % (39.3-74.2) 02/02/17 04:00 Lymph % (Auto) 22.9 % (15.0-45.0) 02/02/17 04:00 Stearns % (Auto) 8.6 % (4.5-13.0) 02/02/17 04:00 Eos % (Auto) 0.9 % (0.6-7.6) 02/02/17 04:00 Baso % (Auto) 0.3 % (0.3-1.7) 02/02/17 04:00 Nucleat RBC Rel Count 0.0 % (0.0-0.2) 02/02/17 04:00 Absolute Neuts (auto) 6.22 10^3/uL (1.70-6.50) 02/02/17 04:00 Absolute Lymphs (auto) 2.13 10^3/uL (1.00-3.00) 02/02/17 04:00 Absolute Monos (auto) 0.80 10^3/uL (0.30-0.80) 02/02/17 04:00 Absolute Eos (auto) 0.08 10^3/uL (0.03-0.40) 02/02/17 04:00 Absolute Basos (auto) 0.03 10^3/uL (0.02-0.10) 02/02/17 04:00 Absolute Nucleated RBC 0.00 10^3/uL (0-0.01) 02/02/17 04:00 Immature Gran % 0.4 % (0.0-1.1) 02/02/17 04:00 Immature Gran # 0.04 10^3/uL (0.00-0.10) 02/02/17 04:00 D-Dimer 1.43 ug/mLFEU (0.00-0.50) H 02/01/17 11:03 Sodium 140 mEq/L (134-144) 02/02/17 04:00 Potassium 4.2 mEq/L (3.5-5.2) 02/02/17 04:00 Chloride 109 mEq/L (97-110) 02/02/17 04:00 Carbon Dioxide 24 mEq/l (22-31) 02/02/17 04:00 Anion Gap 7 mEq/L (8-16) L 02/02/17 04:00 BUN 20 mg/dL (7-23) 02/02/17 04:00 Creatinine 1.0 mg/dL (0.7-1.3) 02/02/17 04:00 Estimated GFR > 60 02/02/17 04:00 Glucose 87 mg/dL (70-100) 02/02/17 04:00 Calcium 8.2 mg/dL (8.5-10.4) L D 02/02/17 04:00 Phosphorus 3.1 mg/dL (2.5-4.5) 02/02/17 04:00 Magnesium 2.3 mg/dL (1.6-2.3) 02/02/17 04:00 Total Bilirubin 0.7 mg/dL (0.1-1.4) 02/02/17 04:00 AST 258 IU/L (17-59) H 02/02/17 04:00 ALT 397 IU/L (21-72) H 02/01/17 11:03 Alkaline Phosphatase 117 IU/L (38-126) 02/01/17 11:03 Lactate Dehydrogenase 1308 IU/L (313-618) H 02/02/17 04:00 Troponin I 1.810 ng/mL (0-0.034) H 02/03/17 04:33 NT-Pro-B Natriuret Pep 2720 pg/mL (0-125) H 02/02/17 04:00 Total Protein 7.3 g/dL (6.3-8.2) 02/01/17 11:03 Albumin 3.3 g/dL (3.5-5.0) L 02/02/17 04:00 Triglycerides 160 mg/dL (40-150) H 02/02/17 04:00 Cholesterol 140 mg/dL (140-200) 02/02/17 04:00 Cholesterol Risk Factr 1.2 (0.2-1.0) H 02/02/17 04:00 LDL Cholesterol, Calc 81 mg/dL (70-100) 02/02/17 04:00 LDL Risk Factor 1.0 (0.2-1.0) 02/02/17 04:00 VLDL Cholesterol 32 mg/dL (8-25) H 02/02/17 04:00 Non-HDL Cholesterol 113 mg/dL (90-129) 02/02/17 04:00 HDL Cholesterol 27 mg/dL (40-65) L 02/02/17 04:00 LDL/HDL Ratio 3.00 RATIO (1.00-3.64) 02/02/17 04:00 Cholesterol/HDL Ratio 5.19 RATIO (1.00-4.97) H 02/02/17 04:00 TSH 1.720 uIU/mL (0.465-4.680) 02/01/17 15:23 Visualized and Interpreted EKG results: Yes Telemetry: Sinus rhythm A/P Assessment: 1. 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 Cardiomyopathy, likely rate related and also related to acute myocardial infarction 3. Sustained monomorphic ventricular tachycardia Plan: 41-year-old male presenting with sustained monomorphic ventricular tachycardia in the presence of an acute inferior myocardial infarction. Palpitations had been ongoing for several hours prior to presentation, likely leading to tachycardia mediated myopathy and left ventricular ejection fraction of 15-20%. This morning, left ventricular ejection fraction has improved more than 40%. The patient did present with an acute myocardial infarction. Wide complex tachycardia was unresponsive to 3 cardioversions but did terminate with procainamide. Post procainamide the patient did have a wide complex idioventricular rhythm. Sinus rhythm following the idioventricular rhythm showed inferior ST elevations. Differential diagnosis of his wide complex tachycardia most likely is ventricular tachycardia originating from an inferior scar. Ventricular tachycardia is positive in leads V1 through V6 with a superior axis, most likely origin is basal inferior left ventricle. There is some possible VA dissociation seen though I cannot be certain of this. Differential diagnosis of wide complex tachycardia includes antegradely conducting accessory pathway and SVT related to that though I do not see ventricular pre-excitation on ECG. I would like to conclusively rule out supraventricular arrhythmias prior to placing ICD. I have recommended EP study followed by ICD placement. If this is indeed VT, we will proceed with ICD placement. Because the likely ventricular tachycardia is monomorphic we do not need to wait for 40 days after acute myocardial infarction given that this is likely related to ventricular scar and has a very high probability of recurrence. Risks of EP study including , mi, CVA, complete AV block requiring permanent pacemaker dependence, vascular access complications etc were discussed with the patient. Risks of ICD placement including bleeding, infection, DVT, pneumothorax, cardiac tamponade which rarely requires emergency open-heart surgery were discussed with him. All his questions were answered. Case was discussed previously with the admitting double needle operator Dr. Sergo Daniels. I also discussed the case today with Dr. Juan Arroyo who has been taking care of the patient over the weekend. A
--- NOTE | 2017-02-04 15:47 | ECHO ---
[id number] + + [address] : : [place] [address] : : [phone] + Adult Echocardiographic Report + + :Name: СВЕТЛАНА MICHAUD MStudy Date: 02/04/2017 08:45 AM : : Hospital Admission Number: [id number] : :: 1975 Gender: Male Height: 67 in : :Age: 41 yrs Race: WH Weight: 200 lb : :Reason For Study: Eval LV Fx : : BSA: 2.0 meters2: :History: Post Stent, Arrythmia : : : + + MMode/2D Measurements \T\ Calculations IVSd: 1.2 cm LVIDd: 4.6 cm FS: 21.5 % Ao root diam: LVPWd: 1.2 cm LVIDs: 3.6 cm EDV(Teich): 3.0 cm 98.5 ml ACS: 2.2 cm ESV(Teich): LA dimension: 55.6 ml 4.1 cm EF(Teich): 43.6 % LVLd ap4: 7.6 cm SV(MOD-sp4): EDV(MOD-sp4): 37.0 ml 64.0 ml LVLs ap4: 6.8 cm ESV(MOD-sp4): 27.0 ml EF(MOD-sp4): 57.8 % Normal Measurement Values: + + :LVIDd (3.5-5.7cm) IVSd (0.6-1.1cm) LVPWd (0.6-1.1cm) Aortic Root (2.0-3.7cm)Left Atrium (1.5-4.0cm): :LV Vol(d) (76-115ml) LV Vol(s) (29-48ml) Ejec Fraction (50-65%)PV Salomon (0.6- 1.2m/s) TV Salomon (0.4-1.0m/s) : :MV E Salomon (0.8-1.0m/s)MV A Salomon (0.3-1.0m/s)LVOT Salomon (0.7-1.2m/s) Asc Ao Salomon ( 0.9-1.8m/s) : + + Doppler Measurements \T\ Calculations MV E max salomon: Ao V2 max: LV V1 max: PA V2 max: 114.0 cm/sec 119.4 cm/sec 76.5 cm/sec 134.4 cm/sec MV A max salomon: Ao max PG: LV V1 max PG: PA max P.6 cm/sec 5.7 mmHg 2.3 mmHg 7.2 mmHg MV E/A: 4.0 Left Ventricle The left ventricle is normal in size. There is normal left ventricular wall thickness. Ejection Fraction = 45%. There is basilar to mid inferolateral and mid to basilar inferolateral hypokinesis. The left ventricular ejection fraction is calculated at 43.6 %. There is mild global hypokinesis of the left ventricle. Right Ventricle The right ventricle is normal in size and function. The right ventricular systolic function is normal. Atria The left atrial size is normal. Right atrial size is normal. Mitral Valve The mitral valve is normal in structure and function. There is no mitral regurgitation noted. Tricuspid Valve Normal tricuspid valve. No tricuspid regurgitation. Aortic Valve The aortic valve is normal in structure and function. The aortic valve is trileaflet. There is no aortic stenosis. There is no aortic insufficiency. Pulmonic Valve The pulmonic valve is not well visualized. There is no pulmonic valvular regurgitation. Great Vessels The aortic root is normal size. Pericardium/Pleural There is no pericardial effusion. Conclusion A complete two-dimensional transthoracic echocardiogram was performed (2D, M-mode, Doppler and color flow Doppler). (1) Left ventricular systolic ejection fraction was mild to moderately suppressed (45%) - mild global hypokinesis with more pronounced inferolateral basilar hypokinesis (2) No left ventricular hypertrophy (3) Diastolic function was not assessed in this study (4) Normal right ventricular size with grossly normal systolic function (5) Grossly normal atrial dimensions (6) Grossly normal mitral valve (7) Trileaflet aortic valve without sclerosis or insufficiency noted (8) Grossly normal tricuspid valve (9) Poor visualization of the pulmonic valve (10) In comparison to echocardiogram from 02-01-17 there has been an improvement in LVEF noted (from 20% to about 40-45%). Final Reading Physician: Juan Arroyo, Margarita signed on 02/04/2017 03:45 PM Ordering Physician: Juan Arroyo Performed By: Benitez Calle, CS
--- NOTE | 2017-02-04 15:59 | PDCARPN ---
Cardiology Progress Note Assessment/Plan: Initially patient told the nurse that he wanted to cancel his procedure that was scheduled today at 3:00 p.m.. I visited with the patient around 1:00 p.m. and discussed with him, he confirm to me that he did not want to proceed at this time. Patient was allowed to eat. Later this evening, I received a call from the patient via his nurse that he does indeed want to proceed with electrophysiology study and ablation, this will be scheduled for tomorrow morning. 02/04/17 15:58 Objective: Vital Signs (8 Hrs) Temp Pulse Resp BP Pulse Ox 02/04/17 15:52 37.3 C 96 20 127/87 H 92 02/04/17 12:00 36.6 C 96 20 125/75 H 95 Intake/Output (24 Hrs) 02/03/17 02/04/17 02/05/17 11:59 11:59 11:59 Intake Total 1450 1550 Output Total 1490 2350 Balance -40 -800 Intake: Oral (ml) 1450 1550 Output: Urine (ml) 1490 2350 Catheter 1490 2350 Other: Intake Quantity Yes Sufficient Output Comment Toilet Pt voided small amount in toilet post cath removal Number of Voids Toilet 1 Number of Stools Catheter 1 Result Diagrams: 02/03/17 04:33 02/02/17 04:00 Cardiac Labs: Cardiac Lab Results (72 Hrs) 02/03/17 02/02/17 02/01/17 04:33 04:00 18:21 Troponin I 1.810 H 2.610 H 1.810 H ICD10 Worksheet Patient Problems: Problems Problem Status Onset Ventricular tachycardia Acute Inferior myocardial infarction Acute
[2017-02-05 04:07] LABS: % IMMATURE GRANULYOCYTES 0.4 % (0.0-1.1); ABSOLUTE IMMATURE GRANULOCYTES 0.03 10^3/uL (0.00-0.10); ADD DIFF? NO; ADD MORPH? NO; ADD SCAN? NO; ATYPICAL LYMPHOCYTE FLAG 0 (0-99); FRAGMENT RBC FLAG 0 (0-99); HEMATOCRIT 43.6 % (40.0-51.0); HEMOGLOBIN 15.1 g/dL (13.7-17.5); LEFT SHIFT FLG 0 (0-99); LIPEMIA HEMOLYSIS FLAG 90 (0-99); MEAN CELL HEMOGLOBIN 30.6 pg (27.9-34.1); MEAN CELL HEMOGLOBIN CONCENTR. 34.6 g/dL (32.4-36.7); MEAN CELL VOLUME 88.4 fL (81.5-99.8); MEAN PLATELET VOLUME 10.1 fL (8.7-11.7); PLATELET CLUMPS FLAG 10 (0-99); PLATELET COUNT 237 10^3/uL (150-400); RED BLOOD CELL COUNT 4.93 10^6/uL (4.40-6.38); RED CELL DISTRIBUTION WIDTH 12.7 % (11.5-15.2)
[2017-02-05 04:18] LABS: INR 1.15 (0.83-1.16); PROTIME(PATIENT) 14.6 SEC (12.0-15.0)
[2017-02-05 04:19] LABS: APTT 29.3 SEC (23.0-38.0)
[2017-02-05 04:31] LABS: ALANINE AMINOTRANSFERASE 155 IU/L (21-72); ALBUMIN 3.9 g/dL (3.5-5.0); ALKALINE PHOSPHATASE 76 IU/L (38-126); ANION GAP 13 mEq/L (8-16); ASPARTATE AMINOTRANSFERASE 38 IU/L (17-59); CALCIUM 8.7 mg/dL (8.5-10.4); CARBON DIOXIDE 21 mEq/l (22-31); CHLORIDE 108 mEq/L (97-110); GLOMERULAR FILTRATION RATE > 60; GLUCOSE 91 mg/dL (70-100); POTASSIUM 4.4 mEq/L (3.5-5.2); SODIUM 142 mEq/L (134-144); TOTAL PROTEIN 6.7 g/dL (6.3-8.2)
[2017-02-05] MEDS ORDERED: BACITRACIN IRRIGATION/NS 50,000 UNITS/1,000 ML BTL IRR ONE (06:00)
[2017-02-05] MEDS ORDERED: ceFAZolin 2 GM/DEXTROSE 100 ML IV ONE (06:00)
[2017-02-05] MEDS ORDERED: ISOPROTERENOL HCL 0.2 MG/ML 5ML AMP ONE (07:29)
[2017-02-05] MEDS ORDERED: BUPIVACAINE 0.5% 30 ML SDV ONE ×2 (07:29→09:54)
[2017-02-05] MEDS ORDERED: LIDOCAINE 1% 30 ML SDV ONE ×2 (07:29→09:54)
[2017-02-05] MEDS ORDERED: PROPOFOL/EMULSION 500 MG/50 ML BOTTLE IV ONE ×2 (08:07→08:12)
[2017-02-05] MEDS ORDERED: LIDOCAINE 2% 100 MG/5 ML SYR ONE (08:08)
[2017-02-05] MEDS ORDERED: ROCURONIUM 100 MG/10 ML VIAL ONE (08:08)
[2017-02-05] MEDS ORDERED: RANITIDINE 50 MG/2 ML VIAL ONE (08:08)
[2017-02-05] MEDS ORDERED: MIDAZOLAM 2 MG/2 ML VIAL ONE ×2 (08:39→08:59)
[2017-02-05] MEDS: ASPIRIN EC 325 MG TAB PO SCH (09:12)
[2017-02-05] MEDS: PRASUGREL HCL 10 MG TAB PO SCH (09:12)
[2017-02-05] MEDS ORDERED: IOPAMIDOL (ISOVUE-300) 100 ML BTL ONE (09:25)
--- NOTE | 2017-02-05 11:21 | EPPROC ---
Electrophysiology Procedure Note: DIAGNOSTIC ELECTROPHYSIOLOGIC STUDY INDICATION: Patient presented with wide complex tachycardia, sustained for over 15 hours. This appeared to be a ventricular tachycardia based on morphology, however EP study was done to conclusively rule out an accessory pathway or other SVT. PROCEDURE: Catheters & Anesthesia: The patient arrived in the Electrophysiology Laboratory in the fasting state. The right clavicular region, right groin, & left groin area were prepped & draped in the usual sterile manner. Moderate sedation was administered by Dr. Duy Suarez. Appropriate non-invasive blood pressure, pulse oximetry & end- tidal CO2 monitoring was established. All catheters were placed percutaneously using the modified Seldinger technique , and advanced into position under fluoroscopic guidance. One #7 Somali deflectable octapolar electrode catheter was advanced to the His-bundle position via the left femoral vein (2mm spacing). One #7 Somali deflectable catheter with 10 pairs of electrodes was placed via the right femoral vein into the coronary sinus. Access to the coronary sinus was difficult and required a SL [address] a catheter into the coronary sinus. Programmed stimulation was performed from the right atrium, right ventricle and coronary sinus (left atrium). Parahisian pacing demonstrated constant H-A interval with changing V-A intervals and stimulus-A intervals during capture and We did not administer isoproterenol because the patient had myocardial infarction 4 days ago. After we had ruled out presence of accessory pathway and also ruled out dual AV caitlyn physiology we decided not to do aggressive programmed stimulation due to the patient's recent myocardial infarction. Sustained ventricular tachycardia that has been seen clinically showed positive concordance in the precordial leads, negative in lead 2 3 and AVF and positive in leads 1 and aVL. Rate during ventricular tachycardia was 215 beats per minute. We did not attempt to induce this ventricular tachycardia because the patient had become unstable during this ventricular tachycardia and required balloon pump support after percutaneous intervention to left circumflex coronary artery at initial presentation. The catheters were removed. The patient was left on the table for ICD placement. Vascular access sheaths were removed in the holding area. There were no apparent complications. Results: A. Spontaneous Intervals: SCL 670 ms AH 50 ms HV 40 ms B. Antegrade AV caitlyn function (decremental pacing) FPERP 430 ms WBB CL 420 ms C. Retrograde AV caitlyn function (decremental pacing) FPERP 450 ms WBB CL 440 ms CONCLUSIONS 1. Normal sinus and AV node function. 2. No evidence of accessory AV pathway presence. 3. No apparent complications. Patient Problems: Problems Problem Status Onset Ventricular tachycardia Acute Inferior myocardial infarction Acute
--- NOTE | 2017-02-05 11:22 | EPPROC ---
Electrophysiology Procedure Note: PROCEDURE PERFORMED: 1. Implantation of an V Implantable Cardioverter Defibrillator 2. Subclavian vein angiography 3. Fluoroscopy INDICATION: Sustained monomorphic ventricular tachycardia Patient had a occluded left circumflex coronary artery which underwent stenting. ICD was placed prior to waiting period because the patient presented with sustained monomorphic ventricular tachycardia of 15 hours in duration and this is likely to recur. EP study ruled out accessory pathway or supraventricular tachycardia. PROCEDURE NOTE: Patient presented to the cardiac catheterization laboratory in a fasting, post absorptive state. Dr. Valdo Suarez administered sedation. The left infraclavicular area was prepped and draped in the usual sterile fashion. Lidocaine plus bupivacaine was used for local anesthesia. Left subclavian venography was performed by injection of iodinated contrast into the left antecubital vein. This was done to assure patency of the vein and also to assess for any anatomical aberrations. Using a combination of blunt and sharp dissection and electrocautery, the dissection was carried down to the prepectoral fascia. A pocket was made in this anatomical plane. All bleeding was controlled with electrocautery. The pocket was packed with gauze soaked in antibiotic solution. Fluoroscopy was utilized during the entire procedure for venous access and placement of the lead. Using a direct stick technique the left extrathoracic axillary vein was accessed with 1 stick using the modified Seldinger technique. Placement of the guidewire into the venous system was confirmed by low-pressure blood return and also by visualizing the guidewire advancing into the inferior vena cava. A purse string suture was applied around the guidewire. One #9 Luxembourgish sheath was advanced under fluoroscopic guidance over the guidewire. An active fixation ventricular ICD lead was advanced into the right ventricular apex and screwed in place. The peel away sheath was removed. Pacing thresholds, sensing parameters and lead impedances were measured. There was no diaphragmatic stimulation at maximum output. The lead was sutured to the prepectoral fascia with 3 nonabsorbable sutures. The gauze packing was removed from the ICD pocket. The pocket was again inspected for any bleeding. The lead was attached to the ICD securely. The ICD was inserted into the pocket and secured in place with a nonabsorbable suture. Fluoroscopy was performed in LEMUS and KENYAN planes to verify right sided placement of the lead. Also fluoroscopy of the ICD pocket was performed. Defibrillation testing was not performed. The ICD pocket was closed in 2 layers with vicryl and imani. Appropriate dressing was applied. The patient left the cardiac catheterization laboratory in stable condition. Serial Numbers: 1. Device : Biotronik model [id number] serial [id number] MRI compatible 2. Ventricular Lead: Biotronik model [id number] serial [id number] Stimulation Thresholds & Impedance Measurements: 1. Ventricular Lead R-waves 24 mV, P-waves 22 mV-this is a VDD lead, threshold 0.4 volts at 0.4 milliseconds impedance 767 Ohms shock impedance 89 Ohms charge time 7.8 seconds. Defibrillation testing: Was not done because of recent myocardial infarction Pacing Parameters: 1. Pacing mode VVI 2. Lower rate 40 ppm Tachycardia therapy parameters: VT zone: Detection: 171 bpm First therapy : ATP 3 sequences Second therapy: 40 Joule Subsequent therapies : 40 Joule VF zone : Detection: 240 bpm First therapy: ATP x 1 Subsequent therapies: 240 Joule Monitoring zone at 150 beats per minute Patient Problems: Problems Problem Status Onset Inferior myocardial infarction Acute Ventricular tachycardia Acute
[2017-02-05] MEDS ORDERED: HYDROCODONE/APAP 5/325 TAB PO PRN (11:58)
[2017-02-05] MEDS: oxyCODONE IR 5 MG TAB PO PRN ×2 (16:15→21:31)
[2017-02-05] MEDS: METOPROLOL TARTRATE 25 MG TAB PO SCH (21:31)
[2017-02-05] MEDS: TEMAZEPAM 15 MG CAP PO PRN (22:26)
[2017-02-06] MEDS: oxyCODONE IR 5 MG TAB PO PRN (05:05)
[2017-02-06 05:28] LABS: INR 1.13 (0.83-1.16); PROTIME(PATIENT) 14.4 SEC (12.0-15.0)
[2017-02-06 05:29] LABS: ANION GAP 10 mEq/L (8-16); CALCIUM 8.9 mg/dL (8.5-10.4); CARBON DIOXIDE 21 mEq/l (22-31); CHLORIDE 107 mEq/L (97-110); GLOMERULAR FILTRATION RATE > 60; GLUCOSE 92 mg/dL (70-100); POTASSIUM 5.5 mEq/L (3.5-5.2); SODIUM 138 mEq/L (134-144)
[2017-02-06] MEDS: ATORVASTATIN CALCIUM 40 MG TAB PO SCH (07:45)
[2017-02-06] MEDS: LISINOPRIL 2.5 MG TAB PO SCH (07:45)
[2017-02-06] MEDS: METOPROLOL TARTRATE 25 MG TAB PO SCH (07:48)
[2017-02-06] MEDS: ASPIRIN EC 325 MG TAB PO SCH (07:48)
--- NOTE | 2017-02-06 09:08 | CPEKG ---
Heart Rate: 84 RR Interval: 714 P-R Interval: 168 QRSD Interval: 68 QT Interval: 372 QTC Interval: 440 P Everton: 32 QRS Everton: 99 T Wave Everton: -66 EKG Severity - ABNORMAL ECG - EKG Impression: SINUS RHYTHM EKG Impression: BORDERLINE RIGHT AXIS DEVIATION EKG Impression: LOW VOLTAGE IN FRONTAL LEADS EKG Impression: ABNORMAL T, CONSIDER ISCHEMIA, INFERIOR LEADS Electronically Signed By: Willa Pearce 06-Feb-2017 10:01:02
[2017-02-06 10:28] LABS: % IMMATURE GRANULYOCYTES 0.4 % (0.0-1.1); ABSOLUTE IMMATURE GRANULOCYTES 0.03 10^3/uL (0.00-0.10); ADD DIFF? NO; ADD MORPH? NO; ADD SCAN? NO; ATYPICAL LYMPHOCYTE FLAG 0 (0-99); FRAGMENT RBC FLAG 0 (0-99); HEMATOCRIT 43.7 % (40.0-51.0); HEMOGLOBIN 14.8 g/dL (13.7-17.5); LEFT SHIFT FLG 0 (0-99); LIPEMIA HEMOLYSIS FLAG 90 (0-99); MEAN CELL HEMOGLOBIN CONCENTR. 33.9 g/dL (32.4-36.7); MEAN CELL VOLUME 91.6 fL (81.5-99.8); MEAN PLATELET VOLUME 9.6 fL (8.7-11.7); PLATELET CLUMPS FLAG 0 (0-99); PLATELET COUNT 221 10^3/uL (150-400); RED BLOOD CELL COUNT 4.77 10^6/uL (4.40-6.38); RED CELL DISTRIBUTION WIDTH 12.7 % (11.5-15.2)
[2017-02-06 11:13] LABS: ANION GAP 12 mEq/L (8-16); CALCIUM 9.3 mg/dL (8.5-10.4); CARBON DIOXIDE 19 mEq/l (22-31); CHLORIDE 105 mEq/L (97-110); CREATININE 0.9 mg/dL (0.7-1.3); GLOMERULAR FILTRATION RATE > 60; GLUCOSE 130 mg/dL (70-100); POTASSIUM 4.8 mEq/L (3.5-5.2); SODIUM 136 mEq/L (134-144)
[2017-02-06] MEDS: PRASUGREL HCL 10 MG TAB PO SCH (11:14)
[2017-02-06] MEDS: CARVEDILOL 25 MG TAB PO SCH (17:27)
[2017-02-06] MEDS: TEMAZEPAM 15 MG CAP PO PRN (20:03)
--- NOTE | 2017-02-06 22:11 | PDCARPN ---
Cardiology Progress Note Assessment/Plan: Cardiomyopathy- likely nonischemic. He has LV dysfunction that is significantly out of proportion to his underlying CAD. Tachycardia mediated versus other etiology. Denies significant daily alcohol intake. Appears volume compensated. Status post ICD implantation for primary prevention of sudden cardiac . Coronary Artery Disease- total occlusion of the circumflex identified at catheterization. Underwent PCI/stent implantation with markedly suboptimal hinduism of antegrade flow. Aggressive secondary prevention. Statin therapy initiated; goal LDL < 70. Dual antiplatelet therapy for 12 months; currently ASA and Effient; genetic testing for clopidogrel metabolism ordered in a.m. Wide Complex Tachycardia/(likely sustained VT at presentation)- status post ICD implantation. Now in normal sinus rhythm with relatively tachycardic rate persistently in the 90s. Will switch from metoprolol 25 mg BID to carvedilol 25 mg BID. EP service recommends no driving for 6 months. Disposition- will reassess in the morning. Even if his heart rate remains in the 90s, he appears to be stable and may be able to be discharged tomorrow morning. He lives in [place] and would prefer referral to a [facility] cardiology group. Will provide him the names of the major cardiology groups in the [place] area. He will need close followup with plans for reassessment of left ventricular systolic function in the next several weeks. Should probably seek short-term disability. 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 02/06/17 22:17 Subjective: No chest pain, dyspnea, or palpitations. Reviewed/Discussed With: family Objective: Vital Signs (8 Hrs) Temp Pulse Resp BP Pulse Ox 02/06/17 20:05 81 93/50 L 02/06/17 16:11 36.6 C 96 15 128/82 H 94 Intake/Output (24 Hrs) 02/05/17 02/06/17 02/07/17 05:59 05:59 05:59 Intake Total 1060 1200 1000 Output Total 300 Balance 3574 310 0652 Intake: Oral (ml) 1060 1200 1000 IV Intake (ml) 0 Output: Urine (ml) 300 Toilet 300 Other: Intake Quantity Yes Sufficient Number of Voids Toilet 2 2 2 Number of Stools Toilet 1 Result Diagrams: 02/06/17 10:21 02/06/17 10:21 - Physical Exam Constitutional: no apparent distress Eyes: anicteric sclera Ears, Nose, Mouth, Throat: moist mucous membranes Cardiovascular: regular rate and rhythm, no murmurs, no rubs, no gallops Gastrointestinal: normoactive bowel sounds, no tenderness, no masses Skin: no rashes, no edema Neurologic: AAOx3 Psychiatric: not anxious ICD10 Worksheet Patient Problems: Problems Problem Status Onset Inferior myocardial infarction Acute Ventricular tachycardia Acute
[2017-02-07] MEDS: PRASUGREL HCL 10 MG TAB PO SCH (08:56)
[2017-02-07] MEDS: LISINOPRIL 2.5 MG TAB PO SCH (08:56)
[2017-02-07] MEDS: ASPIRIN EC 325 MG TAB PO SCH (08:56)
[2017-02-07] MEDS: CARVEDILOL 25 MG TAB PO SCH (08:56)
[2017-02-07] MEDS: ATORVASTATIN CALCIUM 40 MG TAB PO SCH (08:56)
--- NOTE | 2017-02-07 11:22 | CPEKG ---
Heart Rate: 70 RR Interval: 857 P-R Interval: 196 QRSD Interval: 66 QT Interval: 412 QTC Interval: 445 P Terl[place]: 49 QRS [place]: 100 T Wave [place]: -65 EKG Severity - ABNORMAL ECG - EKG Impression: SINUS RHYTHM EKG Impression: RIGHT AXIS DEVIATION EKG Impression: ABNORMAL T, CONSIDER ISCHEMIA, INFERIOR LEADS Electronically Signed By: Willa Pearce 07-Feb-2017 12:07:20
[2017-02-07 11:25] LABS: % IMMATURE GRANULYOCYTES 0.5 % (0.0-1.1); ABSOLUTE IMMATURE GRANULOCYTES 0.04 10^3/uL (0.00-0.10); ADD DIFF? NO; ADD MORPH? NO; ADD SCAN? NO; ATYPICAL LYMPHOCYTE FLAG 10 (0-99); FRAGMENT RBC FLAG 0 (0-99); HEMOGLOBIN 14.1 g/dL (13.7-17.5); LEFT SHIFT FLG 0 (0-99); LIPEMIA HEMOLYSIS FLAG 90 (0-99); MEAN CELL HEMOGLOBIN 31.1 pg (27.9-34.1); MEAN CELL HEMOGLOBIN CONCENTR. 34.4 g/dL (32.4-36.7); MEAN CELL VOLUME 90.5 fL (81.5-99.8); PLATELET CLUMPS FLAG 0 (0-99); PLATELET COUNT 264 10^3/uL (150-400); RED BLOOD CELL COUNT 4.53 10^6/uL (4.40-6.38); RED CELL DISTRIBUTION WIDTH 12.7 % (11.5-15.2)
[2017-02-07 11:38] LABS: ANION GAP 13 mEq/L (8-16); CALCIUM 9.4 mg/dL (8.5-10.4); CARBON DIOXIDE 24 mEq/l (22-31); CHLORIDE 102 mEq/L (97-110); CREATININE 1.1 mg/dL (0.7-1.3); GLOMERULAR FILTRATION RATE > 60; GLUCOSE 170 mg/dL (70-100); POTASSIUM 5.1 mEq/L (3.5-5.2); SODIUM 139 mEq/L (134-144)
[2017-02-07 11:44] VITALS: RESP 14; TEMP 98.1; O2SAT 98
--- NOTE | 2017-02-07 13:24 | GDS ---
[f rep st] DISCHARGE SUMMARY REASON FOR ADMISSION: The patient is a 41-year-old male with no prior cardiac history. He presente d to urgent care with symptoms of palpitations. He had a persistently elevated heart rate for 14 ho urs prior to presentation. In Urgent Care, his ECG demonstrated a wide-complex tachycardia consiste nt with ventricular tachycardia. Three cardioversions failed to restore normal sinus rhythm. Follo wing intravenous procainamide, he did convert to normal sinus rhythm. In sinus rhythm, his ECG demo nstrated inferior ST-segment elevation. He was transported to the [facility] wher e he underwent a cardiac catheterization by Dr. Sergo Daniels. That study demonstrated total occlusi on of the circumflex and otherwise noncritical CAD. He underwent PCI with placement of a single 2.5 x 20 mm Synergy stent. Despite opening his total occlusion, he continued to demonstrate fairly slu ggish flow in the circumflex. Initially his LV ejection fraction was less than 30%. However, on rep eat echocardiography a couple of days later, his ejection fraction was measured at 45%. He had no v alvular heart disease. His troponin peaked at 2.6. He was started on appropriate medical therapy. He did not demonstrate any recurrent ventricular tachycardia. Dr. Shah from the electrophysiology se [facility] was consulted and a single-chamber ICD was implanted. Today, the patient is asymptomatic, sta ble, and ready for discharge. DISPOSITION AND RECOMMENDATIONS: The patient is discharged in stable condition. Discussions have anca mejia held. Regarding heart healthy dietary and exercise habits. He will be following up with Dr. Eddie sams on February 11 at 2 p.m. Ultimately, he would like to switch his followup to a [facility] cardiology group where he lives. DISCHARGE MEDICATIONS: 1. Aspirin 81 mg a day. 2. Carvedilol 25 mg twice daily. 3. Lisinopril 2.5 mg daily. 4. Atorvastatin 40 mg daily. 5. Clopidogrel 75 mg daily. DISCHARGE DIAGNOSES: 1. Ventricular tachycardia. 2. Cardiomyopathy out of proportion to his coronary artery disease. 3. Coronary artery disease. /[id number]/MODL
--- NOTE | 2017-02-07 17:20 | PDCARPN ---
Cardiology Progress Note Chief Complaint: Patient reports he wants go home. Assessment/Plan: Assessment/Plan: 11:00 a.m. this morning, patient being readied for discharge. Reports onset sudden nausea, went to the bathroom, reporting felt diaphoretic, lightheaded, patient laid on floor, near-syncope, but no actual syncopal event. Unfortunately patient had telemetry off preparation for discharge. No incontinence. Patient denies of any chest pain or pressure. Assisted back to bed, laid flat, systolic blood pressure in 80s, placed on monitors, heart rate an 60s, sinus rhythm.. 12 lead EKG done, showing no significant change. AICD interrogated showing no arrhythmias. Glucose 109., stat CBC and BMP drawn. H& H within limits, no significant change from yesterday. Besides high glucose normal electrolyte and renal function. Patient given 500 mL normal saline bolus , an AICD pacer lower limits increased to 50 BPM. Patient potential vasovagal reaction in combination with new cardiac medications. Within 10-15 minutes of episode, systolic blood pressure back low 100s. Since noon he has been up and walking the unit without any further symptoms. No arrhythmias on continuous telemetry. Patient patient would like to go home. Discussed with Dr. Riggins , will discontinue patient's lisinopril at this time, and consider restarting an an outpatient setting. Patient to follow up per Dr. Riggins discharge plan. Instructions went over patient and his family, they verbalize understanding and have no further questions. They have told that if any problems or concerns, post discharge, they are to contact our office or return to the hospital. 02/07/17 17:19 Subjective: He currently denies of any chest pressure, pain, shortness of breath, lightheadedness, palpitations. Reviewed/Discussed With: other (Dr Riggins) Objective: Vital Signs (8 Hrs) Temp Pulse Resp BP Pulse Ox 02/07/17 13:19 84 102/58 L 02/07/17 12:17 84 93/53 L 02/07/17 11:30 36.7 C 75 14 100/62 98 02/07/17 11:11 84 81/64 L 99 Intake/Output (24 Hrs) 02/06/17 02/07/17 02/08/17 05:59 05:59 05:59 Intake Total 1200 1000 Output Total 300 Balance 900 1000 Intake: Oral (ml) 1200 1000 IV Intake (ml) 0 Output: Urine (ml) 300 Toilet 300 Other: Output Comment Toilet pt toileting independently Number of Voids Toilet 2 2 Number of Stools Toilet 1 Result Diagrams: 02/07/17 11:15 02/07/17 11:15 - Physical Exam Constitutional: WDWN, no apparent distress Ears, Nose, Mouth, Throat: moist mucous membranes Cardiovascular: regular rate and rhythm, no rubs, systolic murmur (2/6 systolic murmur left sternal border.), pulses symmetric bilat, No jugular vein distention , No carotid bruit Peripheral Pulses: 1+: dorsalis-pedis (R), dorsalis-pedis (L), 2+: carotid (R), carotid (L) Respiratory: clear to auscultate bilat, no crackles, no wheezes Gastrointestinal: normoactive bowel sounds Skin: warm, no edema Neurologic: AAOx3, CN II-XII grossly intact Psychiatric: cooperative, interactive, following commands ICD10 Worksheet Patient Problems: Problems Problem Status Onset Inferior myocardial infarction Acute Ventricular tachycardia Acute
[2017-02-07 17:39] VITALS: BP 125/65; PULSE 88
[2017-02-08] MEDS ORDERED: CLOPIDOGREL BISULFATE 75 MG TAB PO SCH (09:00)
[2017-02-08] MEDS ORDERED: ASPIRIN EC 81 MG TAB PO SCH (09:00)
[2017-02-08] MEDS ORDERED: ASPIRIN EC 325 MG TAB PO SCH (09:00)
[2017-02-11 14:10] LABS: 2C19S INTERPRETATION See Comments
--- NOTE | 2017-02-11 18:35 | PQFORM ---
PHYSICIAN QUERY FORM Needs Your Response This query form is being sent to you to assure this patient record is coded properly. Please respond to the question below: CLERICAL ADVISER QUESTION: Dear Dr. Riggins, In review of the the medical recorded it is stated this patient had the diagnosis of 'myocardial infarction.' ER states patient presented with ' inferior myocardial infarction.' Dr. Shah's consult states patient had the diagnosis of 'acute inferior myocardial infarction related to left circumflex artery occlusion.' The Diagnostic Cath note states in the assessment/ conclusion patient had the diagnosis of 'subacute myocardial infarction with 100 % occlusion of the left circumflex.' EKG report dated 02/01 states 'inferior infarction, possibly acute.' After study, should the diagnosis of 'myocardium infarction involving left circumflex coronary artery' be included in the Discharge Summary? Yes _X No Other more appropriate diagnosis Unable to determine Thank you ANIYAH [facility] HIM/Coding Dept. [phone] INSTRUCTIONS FOR RESPONSE: Answer question by clicking on the "Edit Document" button. Move cursor to area below the stars. When complete, hit "Save." Click on the "Sign" button, then click "Sign" again. Type in your PIN and hit "Enter." MTDD
== END 2017-02-07 17:28 | disposition home or self-care (01) | DRG 265 ==
LOC: F2N 13:55 → F2W 02-03 22:04
PROVIDERS: ADMIT Internal Medicine Cardiovascular Disease; ATTEND Internal Medicine Cardiovascular Disease
PROC: 027034Z Dilation of Coronary Artery, One Artery with Drug-eluting Intraluminal Device, Percutaneous Approach (ICD-10-PCS; principal; 2017-02-01)
PROC: B2111ZZ Fluoroscopy of Multiple Coronary Arteries using Low Osmolar Contrast (ICD-10-PCS; principal; 2017-02-01)
PROC: 4A023N7 Measurement of Cardiac Sampling and Pressure, Left Heart, Percutaneous Approach (ICD-10-PCS; principal; 2017-02-01)
PROC: 5A2204Z Restoration of Cardiac Rhythm, Single (ICD-10-PCS; 2017-02-01)
PROC: 02HK3KZ Insertion of Defibrillator Lead into Right Ventricle, Percutaneous Approach (ICD-10-PCS; 2017-02-05)
DX: I21.21 ST elevation (STEMI) myocardial infarction involving left circumflex coronary artery (principal); I47.2 Ventricular tachycardia; I42.9 Cardiomyopathy, unspecified; I25.10 Atherosclerotic heart disease of native coronary artery without angina pectoris
CPT/HCPCS: 81225-90; C1722; C1725; C1731; C1769; C1777; C1874; C1887; C9600; C9606; J0153; J0282; J0583; J0690; J1644; J1800; J1940; J2001; J2060; J2250; J2405; J2690; J2704; J2780; J3010; Q9967